=== PATIENT | male | born 1950 | race Native Hawaiian/Other Pacific Islander ===

== ENCOUNTER 2017-09-21 10:05 | Outpatient (CLI) | payer OTHER | END 2017-09-21 21:55 | disposition home or self-care (01) | LOC: RAD 10:05 | DX: R13.12 Dysphagia, oropharyngeal phase (principal) ==

== ENCOUNTER 2017-10-24 16:55 | Outpatient (CLI) | payer OTHER ==
[2017-10-24 17:30] LABS: PLATELET COUNT 217 K/uL (142-355)
[2017-10-24 17:48] LABS: POTASSIUM 3.7 mmol/L (3.6-5.2)
== END 2017-10-24 22:48 | disposition home or self-care (01) ==
LOC: LABW 16:55
PROVIDERS: Nurse Practitioner Family
DX: J44.1 Chronic obstructive pulmonary disease with (acute) exacerbation (principal)
CPT/HCPCS: 36415; 80053; 85027